=== PATIENT | male | born 1940 | race Caucasian/White ===

== ENCOUNTER 2019-12-09 14:23 | Inpatient (IN) | payer MEDICARE ==
[~2019-12-09] VITALS: Ht 172.7 cm; Wt 68.0 kg
--- NOTE | 2019-12-09 14:23 | NUR ---
Patient is here in our ER for medical clearance for pysch admission to [facility] for danger to self. Dr Holm & [facility] hospitalist accepted this patient. Our ER doctor needs to medically clear this patient. [phone] psych HOLD noted since 1155am today 12/09/19.
[2019-12-09] MEDS ORDERED: ALPR1TAB7 PO (14:45)
[2019-12-09] MEDS ORDERED: ASPI-1169 PO (14:45)
[2019-12-09] MEDS ORDERED: CBD PO (14:45)
[2019-12-09] MEDS ORDERED: OLOP2.5D EACHEYE (14:45)
[2019-12-09] MEDS ORDERED: AMLO5TAB9 PO (14:45)
[2019-12-09] MEDS ORDERED: MEMA10TA PO (14:45)
[2019-12-09] MEDS ORDERED: IBUP-1955 PO (14:45)
[2019-12-09] MEDS ORDERED: PEG15DRO5 OP (14:45)
[2019-12-09] MEDS ORDERED: LOSA50TA39 PO (14:45)
[2019-12-09] MEDS ORDERED: FERR325T24 PO (14:45)
[2019-12-09] MEDS ORDERED: GINK120C PO (14:45)
[2019-12-09] MEDS ORDERED: FAMO-132 PO (14:45)
[2019-12-09] MEDS ORDERED: DEBROX (14:45)
[2019-12-09] MEDS ORDERED: HYOS-17 SL (14:45)
[2019-12-09] MEDS ORDERED: DONE10TA44 PO (14:45)
[2019-12-09 14:58] LABS: *BILIRUBIN,URIN NEGATIVE (NEGATIVE); *BLOOD, URINE NEGATIVE (NEGATIVE); *CLARITY,URINE CLEAR (CLEAR); *KETONES,URINE NEGATIVE (NEGATIVE); *UROBILINOGEN,URINE 0.2 E.U./dl (NORMAL); LEUKOCYTE ESTERASE ,URINE NEGATIVE (NEGATIVE); NITRITE, URINE NEGATIVE (NEGATIVE); UGLUCOSE NEGATIVE (NEGATIVE)
[2019-12-09 14:58] LABS: BASOPHILS % (AUTO) 0.3 % (0.0-2.0); EOSINOPHILS # (AUTO) 0.1 K/uL (0.0-0.7); HEMATOCRIT 48.3 % (36.7-47.1); HEMOGLOBIN 16.2 g/dL (12.5-16.3); LYMPHOCYTES # (AUTO) 2.4 K/uL (20.0-40.0); LYMPHOCYTES % (AUTO) 30.2 % (20.5-51.5); MEAN CORPUSCULAR HEMOGLOBIN 32.9 uug (23.8-33.4); MEAN CORPUSCULAR HGB CONC 33 g/dL (32.5-36.3); MEAN CORPUSCULAR VOLUME 98.5 fL (73.0-96.2); MONOCYTES # (AUTO) 0.7 K/uL (2.0-10.0); MONOCYTES % (AUTO) 8.5 % (0.0-11.0); NEUTROPHILS # (AUTO) 4.8 K/uL (1.8-8.9); PLATELET COUNT (AUTO) 190 K/uL (152-348); RED BLOOD CELL COUNT(AUTO) 4.91 MIL/uL (4.06-5.63)
[2019-12-09 15:03] LABS: CARBON DIOXIDE 30 mmol/L (21-32); CHLORIDE 98 mmol/L (98-107); CREATININE 1.1 mg/dL (0.6-1.3); GLUCOSE 95 mg/dL (74-106); POTASSIUM 3.5 mmol/L (3.5-5.1); UREA NITROGEN, BLOOD 12 mg/dL (7-18)
[2019-12-09 15:07] LABS: *COLOR,URINE LIGHT YELLOW (YELLOW)
--- NOTE | 2019-12-09 15:10 | NUR ---
Dr Aviles is at bedside, MSE in progress
[2019-12-09 15:18] LABS: ETHANOL < 3 MG/DL (0-0)
[2019-12-09 15:20] LABS: ALANINE AMINOTRANSFERASE 26 U/L (16-63); ALKALINE PHOSPHATASE 63 U/L (50-136); ASPARTATE AMINOTRANSFERASE 16 U/L (15-37); BILIRUBIN,DIRECT 0.1 mg/dL (0.0-0.2); BILIRUBIN,TOTAL 0.5 mg/dL (0.2-1.0); TOTAL PROTEIN, SERUM 7.7 g/dL (6.4-8.2)
[2019-12-09 15:21] LABS: ACETAMINOPHEN < 2.0 ug/mL (10-30)
[2019-12-09 15:30] VITALS: BP 158/89
[2019-12-09 15:33] LABS: THYROID STIMULATING HORMONE 0.724 mIU/mL (0.358-3.740)
[2019-12-09 15:38] LABS: *AMPHETAMINE, URINE NEGATIVE (NEGATIVE); *BARBITURATE, URINE NEGATIVE (NEGATIVE)
[2019-12-09 15:39] LABS: *CANNABINOID, URINE NEGATIVE (NEGATIVE); *COCCAINE, URINE NEGATIVE (NEGATIVE); *OPIATE, URINE NEGATIVE (NEGATIVE); *PHENCYCLIDINE SCREEN,URINE NEGATIVE (NEGATIVE)
[2019-12-09] MEDS: LOPERAMIDE HCL 2 MG CAPSULE PO ONE ×2 (15:45→16:03)
[2019-12-09] MEDS ORDERED: LOPERAMIDE HCL 2 MG CAPSULE ONE (15:47)
--- NOTE | 2019-12-09 16:01 | NUR ---
Erwin wants his eyedrops, is aware.
--- NOTE | 2019-12-09 16:03 | NUR ---
Patient refused the Imodium capsule, is aware.
--- NOTE | 2019-12-09 16:36 | NUR ---
Patient is medically cleared by Dr Aviles for MHU admission.
--- NOTE | 2019-12-09 16:44 | NUR ---
3rd page of the medication list (3 of 3) pending from patient's detention home. Patient is resting comfortably on gurney, no acute change in condition seen.
--- NOTE | 2019-12-09 16:51 | NUR ---
Room 145A is not ready per MHU nurse Lawanda. EVS paged accordingly.
--- NOTE | 2019-12-09 17:01 | NUR ---
Patient refused dinner tray@this time.
[2019-12-09] MEDS ORDERED: MAG HYDROX/AL HYDROX/SIMETH 30 ML LIQUID UDC PO PRN (17:45)
[2019-12-09] MEDS ORDERED: MAGNESIUM HYDROXIDE 30 ML LIQUID UDC PO PRN (17:45)
[2019-12-09] MEDS ORDERED: TEMAZEPAM 7.5 MG CAPSULE PO PRN (17:45)
[2019-12-09] MEDS ORDERED: ACETAMINOPHEN 325 MG TABLET PO PRN (17:45)
[2019-12-09] MEDS ORDERED: BLOOD SUGAR DIAGNOSTIC 1 EACH STRIP VI ONE (17:45)
[2019-12-09] MEDS ORDERED: CHOL200078 PO (18:08)
[2019-12-09] MEDS ORDERED: ACET325T53 PO (18:08)
[2019-12-09] MEDS ORDERED: VENL75CA62 PO (18:08)
[2019-12-09] MEDS ORDERED: OXYB15TA19 PO (18:08)
[2019-12-09] MEDS ORDERED: PILO5TAB PO (18:08)
[2019-12-09] MEDS ORDERED: NETA2.5D3 EACHEYE (18:08)
[2019-12-09] MEDS ORDERED: ACET-73 PO (18:08)
[2019-12-09] MEDS ORDERED: BRIN8DRO EACHEYE (18:08)
[2019-12-09] MEDS ORDERED: OMEP40CA13 PO (18:08)
[2019-12-09] MEDS ORDERED: ACET500C4 PO (18:08)
[2019-12-09] MEDS ORDERED: MULT1TAB82 PO (18:08)
--- NOTE | 2019-12-09 18:45 | NUR ---
Patient admitted to [facility] on a 5150 hold for DTS from the ER. Patient transported on a gurney accompanied by ER staff. patient oriented to unit rules and policies, oriented to his assigned room, and given an admission packet. Patient's belongings and valuables inventoried with patient and placed in contraband and safe. Patient is cooperative on admission. Upon face to face admission, patient is minimizing reason for admission, is anxious, becoming agitated, but is cooperative and redirectable. Patient stated that he was at home and "looked on the internet for painless ways to . I wanted to use a razor blade but I just needed to know if I should use cold water or hot water." Patient stated "If I wanted to I would have just jumped off my balcony. I'm on the 4th floor." Patient stated he has had 1 suicide attempt in the past, he overdosed on hydrocodone and sleeping pills but was found by his neighbor. Patient state his stressor is that he is homosexual and his partner of 35 years . Patient reports no social support. Patient denies history of substance abuse. Patient denies AH/VH, denies HI. States that he takes Effexor XR for depression since 1989 but is denying mental illness.
[2019-12-09 21:06] VITALS: BP 143/75
[2019-12-09] MEDS ORDERED: IBUPROFEN 600 MG TABLET PO PRN (21:30)
[2019-12-10 07:30] VITALS: BP 141/85
[2019-12-10] MEDS ORDERED: POLYVINYL ALCOHOL OPHT DROPS 15 ML BOTTLE EACHEYE PRN (08:00)
[2019-12-10] MEDS ORDERED: PILOCARPINE HCL 5 MG PO SCH (09:00)
[2019-12-10] MEDS ORDERED: MULTIVITS W FE OTHER MIN PO SCH (09:00)
[2019-12-10] MEDS ORDERED: Medication Not On Formulary EA (Omeprazole 40 MG) PO SCH (09:00)
[2019-12-10] MEDS ORDERED: OXYBUTYNIN CHLORIDE 15 MG PO SCH (09:00)
[2019-12-10] MEDS: CHOLECALCIFEROL 1,000 UNIT TABLET PO SCH (09:33)
[2019-12-10] MEDS: LOSARTAN POTASSIUM 50 MG TABLET PO SCH (09:34)
[2019-12-10] MEDS: DONEPEZIL 10 MG TABLET PO SCH (09:34)
[2019-12-10] MEDS: FERROUS SULFATE 325 MG TABEC PO SCH (09:34)
[2019-12-10] MEDS: AMLODIPINE 5 MG TABLET PO SCH (09:34)
[2019-12-10] MEDS: ASPIRIN 81 MG TAB.CHEW PO SCH (09:35)
[2019-12-10] MEDS: OXYBUTYNIN XL 5 MG TABSR PO SCH ×2 (09:35→16:34)
[2019-12-10] MEDS: MULTIVIT, IRON, MIN NO. 8, FA TABLET PO SCH (09:35)
[2019-12-10] MEDS: LORAZEPAM 0.5 MG TABLET PO PRN ×2 (09:43→10:36)
[2019-12-10] MEDS: VENLAFAXINE XR 75 MG TAB.ER.24H PO SCH (12:27)
[2019-12-10] MEDS: BRIMONIDINE 0.2% OPHT DROP 10 ML BOTTLE EACHEYE SCH ×2 (13:00→16:34)
[2019-12-10] MEDS: OLOPATADINE 0.1% OPHT DROP 5 ML BOTTLE EACHEYE SCH ×2 (13:00→20:32)
[2019-12-10] MEDS: DORZOLAMIDE 2% OPHT DROP 10 ML BOTTLE EACHEYE SCH ×2 (13:01→16:34)
[2019-12-10 17:37] VITALS: BP 169/92
[2019-12-10 20:27] VITALS: BP 124/87
[2019-12-10] MEDS: FAMOTIDINE 20 MG TABLET PO SCH (20:30)
[2019-12-10] MEDS: LATANOPROST OPHT DROP 2.5 ML BOTTLE EACHEYE SCH (20:31)
[2019-12-10] MEDS ORDERED: Medication Not On Formulary EA (Netarsudil Mesylat/Latanoprost (Rocklatan 0.02%-0.005% E OP SCH (21:00)
--- NOTE | 2019-12-11 01:32 | NUR ---
RECEIVED PATIENT IN BED AND HE APPEARED DEPRESSED AND WITHDRAWN.HE HOWEVER SAYS HE'S NOT GOING TO HARM HIMSELF AND DENIES SI/HI.HE IS VERY PARTICULAR ABOUT HIS MEDICATIONS AND GAVE A WHOLE LOT OF REASONS WHY HE ONLY NEEDS ONE EYE DROP. AFTER SOME EXPLANATIONS HE TOOK THEM ALL. FREQUENT VISUAL CHECKS MADE ON HIM. WILL CONTINUE TO MONITOR.
[2019-12-11] MEDS: PANTOPRAZOLE SODIUM 40 MG TABLET.DR PO SCH (06:28)
--- NOTE | 2019-12-11 06:43 | NUR ---
HE SLEPT FAIRLY WELL AFTER A WHILE.APPROX 07;30HRS.BED BATH GIVEN. Addendum: 12/11/19 at 0645 by ESPERANZA GUADARRAMA RN WRONG DOCUMENTATION
--- NOTE | 2019-12-11 06:45 | NUR ---
SLEPT FAIRLY WELL FOR APPROX.07;30HRS.REFUSED OFFERED SHOWER. SAID HIS NEXT SHOWER SHOULD BE TAKEN AT HOME.
[2019-12-11 07:30] VITALS: BP 140/86
[2019-12-11] MEDS: DORZOLAMIDE 2% OPHT DROP 10 ML BOTTLE EACHEYE SCH ×3 (09:00→17:00)
[2019-12-11] MEDS: DONEPEZIL 10 MG TABLET PO SCH (09:05)
[2019-12-11] MEDS: ASPIRIN 81 MG TAB.CHEW PO SCH (09:05)
[2019-12-11] MEDS: MULTIVIT, IRON, MIN NO. 8, FA TABLET PO SCH (09:05)
[2019-12-11] MEDS: FERROUS SULFATE 325 MG TABEC PO SCH (09:06)
[2019-12-11] MEDS: VENLAFAXINE XR 75 MG TAB.ER.24H PO SCH (09:06)
[2019-12-11] MEDS: LOSARTAN POTASSIUM 50 MG TABLET PO SCH (09:06)
[2019-12-11] MEDS: OXYBUTYNIN XL 5 MG TABSR PO SCH ×2 (09:06→17:00)
[2019-12-11] MEDS: CHOLECALCIFEROL 1,000 UNIT TABLET PO SCH (09:06)
[2019-12-11] MEDS: AMLODIPINE 5 MG TABLET PO SCH (09:07)
[2019-12-11] MEDS: BRIMONIDINE 0.2% OPHT DROP 10 ML BOTTLE EACHEYE SCH ×3 (09:07→17:00)
[2019-12-11] MEDS: OLOPATADINE 0.1% OPHT DROP 5 ML BOTTLE EACHEYE SCH ×2 (09:08→20:38)
[2019-12-11] MEDS ORDERED: LOPERAMIDE HCL 2 MG CAPSULE PO PRN (13:30)
--- NOTE | 2019-12-11 14:30 | NUR ---
PT STATED THAT HE CANNOT FIND HIS RIGHT HEARING AID. A SEARCH WILL BE PERFORMED BY STAFF FOR MISSING ITEM. STATED THE LAST TIME HE SAW HEARING AID WAS "THIS MORNING."
[2019-12-11 16:00] VITALS: BP 118/84
[2019-12-11 20:37] VITALS: BP 117/73
[2019-12-11] MEDS: LATANOPROST OPHT DROP 2.5 ML BOTTLE EACHEYE SCH (20:37)
[2019-12-11] MEDS: FAMOTIDINE 20 MG TABLET PO SCH (20:37)
--- NOTE | 2019-12-12 00:11 | NUR ---
RECEIVED PATIENT IN BED AND HE APPEARED WITHDRAWN AND DEPRESSED.HE HOWEVER SAYS HE'S NOT GOING TO HARM HIMSELF AND DENIES SI/HI. HE IS SELECTIVE WITH SOME OF HIS EYE DROPS. FREQUENT VISUAL CHECKS MADE ON HIM. WILL CONTINUE TO MONITOR.
[2019-12-12] MEDS: PANTOPRAZOLE SODIUM 40 MG TABLET.DR PO SCH (06:23)
--- NOTE | 2019-12-12 06:35 | NUR ---
SLEPT FOR APPROX 07;00. TOOK ALL MEDS.WILL CONTINUE TO MONITOR.
[2019-12-12] MEDS: MULTIVIT, IRON, MIN NO. 8, FA TABLET PO SCH (08:22)
[2019-12-12] MEDS: VENLAFAXINE XR 75 MG TAB.ER.24H PO SCH (08:22)
[2019-12-12] MEDS: ASPIRIN 81 MG TAB.CHEW PO SCH (08:23)
[2019-12-12] MEDS: CHOLECALCIFEROL 1,000 UNIT TABLET PO SCH (08:23)
[2019-12-12] MEDS: FERROUS SULFATE 325 MG TABEC PO SCH (08:23)
[2019-12-12] MEDS: LOSARTAN POTASSIUM 50 MG TABLET PO SCH (08:23)
[2019-12-12] MEDS: DONEPEZIL 10 MG TABLET PO SCH (08:23)
[2019-12-12] MEDS: AMLODIPINE 5 MG TABLET PO SCH (08:24)
[2019-12-12] MEDS: OLOPATADINE 0.1% OPHT DROP 5 ML BOTTLE EACHEYE SCH ×2 (08:32→20:19)
[2019-12-12] MEDS: OXYBUTYNIN XL 5 MG TABSR PO SCH ×2 (08:32→17:10)
[2019-12-12] MEDS: BRIMONIDINE 0.2% OPHT DROP 10 ML BOTTLE EACHEYE SCH ×3 (08:32→17:00)
[2019-12-12] MEDS: DORZOLAMIDE 2% OPHT DROP 10 ML BOTTLE EACHEYE SCH ×3 (08:32→17:10)
[2019-12-12 10:22] VITALS: BP 137/69
--- NOTE | 2019-12-12 12:05 | NUR ---
Social Work Note/Initial Discharge Plan: Patient currently resides at [facility] a fci at [address] [place] [address]; ([phone]). Patient would like to go back to his fci. SW will contact the fci to see if patient is welcomed back. case worker will work with the patient and the MD regarding appropriate discharge planning. case worker will form a safe and proper discharge.
--- NOTE | 2019-12-12 12:10 | NUR ---
Social Work Note/Coordination of Care: utility worker film processing contacted [facility] ([phone]) and left a voicemail to admin coordinator. This bid writer is waiting for admin coordinator to contact back to discuss patients discharge plan.
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
[2019-12-12 15:44] VITALS: BP 132/77
[2019-12-12] MEDS: LATANOPROST OPHT DROP 2.5 ML BOTTLE EACHEYE SCH (20:18)
[2019-12-12] MEDS: FAMOTIDINE 20 MG TABLET PO SCH (20:18)
[2019-12-12 20:35] VITALS: BP 125/71
[2019-12-13] MEDS: PANTOPRAZOLE SODIUM 40 MG TABLET.DR PO SCH (06:11)
[2019-12-13 07:49] VITALS: BP 112/82
[2019-12-13] MEDS: MULTIVIT, IRON, MIN NO. 8, FA TABLET PO SCH (08:19)
[2019-12-13] MEDS: OXYBUTYNIN XL 5 MG TABSR PO SCH ×2 (08:19→16:49)
[2019-12-13] MEDS: DONEPEZIL 10 MG TABLET PO SCH (08:19)
[2019-12-13] MEDS: FERROUS SULFATE 325 MG TABEC PO SCH (08:19)
[2019-12-13] MEDS: LORAZEPAM 0.5 MG TABLET PO PRN (08:19)
[2019-12-13] MEDS: CHOLECALCIFEROL 1,000 UNIT TABLET PO SCH (08:19)
[2019-12-13] MEDS: ASPIRIN 81 MG TAB.CHEW PO SCH (08:19)
[2019-12-13] MEDS: VENLAFAXINE XR 75 MG TAB.ER.24H PO SCH (08:19)
[2019-12-13] MEDS: DORZOLAMIDE 2% OPHT DROP 10 ML BOTTLE EACHEYE SCH ×3 (08:20→16:49)
[2019-12-13] MEDS: LOSARTAN POTASSIUM 50 MG TABLET PO SCH (08:20)
[2019-12-13] MEDS: AMLODIPINE 5 MG TABLET PO SCH (08:20)
[2019-12-13] MEDS: BRIMONIDINE 0.2% OPHT DROP 10 ML BOTTLE EACHEYE SCH ×3 (08:20→16:49)
[2019-12-13] MEDS: OLOPATADINE 0.1% OPHT DROP 5 ML BOTTLE EACHEYE SCH ×2 (08:21→21:00)
--- NOTE | 2019-12-13 11:49 | NUR ---
Social Work Note/Individual Therapy: box worker met with patient for brief counseling. box worker assessed for SI, but none were reported. Pt denies SI. box worker provided emotional support and actively listened. Patient is concerned with the lost of his hearing aids.
[2019-12-13] MEDS: CLIDINIUM BR/CHLORDIAZEPOXIDE CAPSULE PO SCH ×2 (15:57→21:35)
[2019-12-13 16:00] VITALS: BP 134/74
[2019-12-13 20:20] VITALS: BP 118/67
[2019-12-13] MEDS: FAMOTIDINE 20 MG TABLET PO SCH (21:31)
[2019-12-13] MEDS: LATANOPROST OPHT DROP 2.5 ML BOTTLE EACHEYE SCH (21:32)
[2019-12-14] MEDS: PANTOPRAZOLE SODIUM 40 MG TABLET.DR PO SCH (06:42)
[2019-12-14] MEDS: CLIDINIUM BR/CHLORDIAZEPOXIDE CAPSULE PO SCH ×3 (06:44→22:18)
[2019-12-14 07:30] VITALS: BP 128/67
--- NOTE | 2019-12-14 08:19 | NUR ---
Social Work Note/Coordination of Care: farmworker pullet farm faxed Jalil admin coordinator from [facility] ([phone]) (F:[phone]) [facility] and progress notes.
[2019-12-14] MEDS: MULTIVIT, IRON, MIN NO. 8, FA TABLET PO SCH (08:23)
[2019-12-14] MEDS: CHOLECALCIFEROL 1,000 UNIT TABLET PO SCH (08:23)
[2019-12-14] MEDS: AMLODIPINE 5 MG TABLET PO SCH (08:23)
[2019-12-14] MEDS: DONEPEZIL 10 MG TABLET PO SCH (08:24)
[2019-12-14] MEDS: FERROUS SULFATE 325 MG TABEC PO SCH (08:24)
[2019-12-14] MEDS: ASPIRIN 81 MG TAB.CHEW PO SCH (08:24)
[2019-12-14] MEDS: LOSARTAN POTASSIUM 50 MG TABLET PO SCH (08:24)
[2019-12-14] MEDS: OXYBUTYNIN XL 5 MG TABSR PO SCH ×2 (08:27→17:39)
[2019-12-14] MEDS: OLOPATADINE 0.1% OPHT DROP 5 ML BOTTLE EACHEYE SCH ×2 (08:28→20:18)
[2019-12-14] MEDS: DORZOLAMIDE 2% OPHT DROP 10 ML BOTTLE EACHEYE SCH ×3 (08:28→17:40)
[2019-12-14] MEDS: BRIMONIDINE 0.2% OPHT DROP 10 ML BOTTLE EACHEYE SCH ×3 (08:28→17:39)
[2019-12-14] MEDS: VENLAFAXINE XR 150 MG CAP.SR.24H PO SCH (08:55)
[2019-12-14 16:00] VITALS: BP 117/69
[2019-12-14] MEDS: LATANOPROST OPHT DROP 2.5 ML BOTTLE EACHEYE SCH (20:18)
[2019-12-14] MEDS: FAMOTIDINE 20 MG TABLET PO SCH (20:18)
[2019-12-14 21:30] VITALS: BP 122/63
[2019-12-15] MEDS: PANTOPRAZOLE SODIUM 40 MG TABLET.DR PO SCH (06:36)
[2019-12-15] MEDS: CLIDINIUM BR/CHLORDIAZEPOXIDE CAPSULE PO SCH ×2 (06:36→14:00)
[2019-12-15 07:30] VITALS: BP 137/91
[2019-12-15] MEDS: OXYBUTYNIN XL 5 MG TABSR PO SCH (09:00)
[2019-12-15] MEDS: DORZOLAMIDE 2% OPHT DROP 10 ML BOTTLE EACHEYE SCH ×2 (09:40→12:18)
[2019-12-15] MEDS: AMLODIPINE 5 MG TABLET PO SCH (09:41)
[2019-12-15 09:42] VITALS: BP 137/91
[2019-12-15] MEDS: MULTIVIT, IRON, MIN NO. 8, FA TABLET PO SCH (09:42)
[2019-12-15] MEDS: LOSARTAN POTASSIUM 50 MG TABLET PO SCH (09:42)
[2019-12-15] MEDS: FERROUS SULFATE 325 MG TABEC PO SCH (09:42)
[2019-12-15] MEDS: DONEPEZIL 10 MG TABLET PO SCH (09:43)
[2019-12-15] MEDS: ASPIRIN 81 MG TAB.CHEW PO SCH (09:43)
[2019-12-15] MEDS: CHOLECALCIFEROL 1,000 UNIT TABLET PO SCH (09:44)
[2019-12-15] MEDS: OLOPATADINE 0.1% OPHT DROP 5 ML BOTTLE EACHEYE SCH (09:44)
[2019-12-15] MEDS: VENLAFAXINE XR 150 MG CAP.SR.24H PO SCH (09:45)
[2019-12-15] MEDS: BRIMONIDINE 0.2% OPHT DROP 10 ML BOTTLE EACHEYE SCH ×2 (09:46→12:16)
--- NOTE | 2019-12-15 11:01 | NUR ---
Social Work Note/Coordination of Care: reclamation worker contacted and spoke to Kassidy from [address] [address]; ([phone]) and scheduled appointment for for December 20 at 11:30AM.
--- NOTE | 2019-12-15 11:03 | NUR ---
Social Work Note/Coordination of Care: direct care worker contacted Randi from Dr. Chante Jamison office to schedule an appointment for patient for December 29 at 2PM. This senior underwriter faxed patients [facility] notes and progress notes.
[2019-12-15] MEDS ORDERED: BENZOCAINE/MENTH/CETYLPYRD LOZENGE MM PRN (12:30)
[2019-12-15] MEDS ORDERED: GUAIFENESIN/CODEINE 5 ML LIQUID UDC PO PRN (12:30)
--- NOTE | 2019-12-15 12:56 | NUR ---
Gps/Precipitator- Had been complaining of sore throat, no coughing noted, Amanda PLASTIC BOAT BUFFER in to see patient was informed, orders received. Patient had been very particular about his eye gtts, reviewed with patient.
--- NOTE | 2019-12-15 13:55 | NUR ---
Social Work Note/Discharge: Patient will be discharged back to [facility] [address] [place] [address]; ([phone]) via taxi at 3:30PM. SW spoke to Jalil admin coordinator ([phone]) at the facility who states they are ready to accept patient back today. Patient is aware and agreeable with discharge plans. Patient has no family contact at this time. Patient is alert and oriented x3, is able to plan for care. Patient denies any suicidal or homicidal ideations. Patient will follow-up at the facility with Dr. Chante Jamison ([employer]) at [address] [facility] [address]; ([phone]) at December 29 at 2PM and will be assigned a psychiatrist upon evaluation at [address] [address]; ([phone]) on December 29 at 2PM and [facility] [place] [address]; ([phone]) for December 20 at 11:30AM. Patient was provided with outpatient mental health resources to [facility] Crisis Line , and the National Suicide Prevention Lifeline . Patient presents with euthymic and congruent mood.
--- NOTE | 2019-12-15 13:56 | NUR ---
Social Work Note/Individual Therapy: grounds worker met with patient for brief therapy. Patient denies SI. grounds worker provided resources.
--- NOTE | 2019-12-15 15:00 | NUR ---
Gps/Paper Core Machine Operator- Discharge planning in progress. Reviewed medications/prescriptions with patient vebrlaized understanding. Called Assisted living , [facility], spoked to Jalil, reviewed medications/prescription, claimed patient has all medications at the facility. Reviewed diet safety emphasized verbalized understanding. All belongings was given back to patient. Discharged instructions again reviewed with patient, verbalized understanding. Claimed will follow up with his medical Doctor Dr Chante Jamison and Psychiatrist Dr Holm. Patient verbalized happy to go back to his assisted living., able to contract for safety .
--- NOTE | 2019-12-15 15:12 | NUR ---
Social Work Note/Taxi: bog worker contacted taxi and request for 3:30PM for $40 dollars. Spoke to 97 custom feed corn operator.
--- NOTE | 2019-12-15 15:31 | NUR ---
Gps/Separations Scientist- Discharged via taxi in good spirit with no complaints noted. All belongings given back to patient, no complaints noted.
== END 2019-12-15 15:45 | DRG 885 ==
LOC: ER 14:23 → GPS 17:18
PROVIDERS: ADMIT Psychiatry & Neurology Psychiatry; ATTEND Hospitalist
DX: F33.2 Major depressive disorder, recurrent severe without psychotic features (principal); K21.9 Gastro-esophageal reflux disease without esophagitis; Z91.5 Personal history of self-harm; G30.9 Alzheimer's disease, unspecified; F02.80 Dementia in other diseases classified elsewhere, unspecified severity, without behavioral disturbance, psychotic disturbance, mood disturbance, and anxiety; K58.9 Irritable bowel syndrome, unspecified; G25.0 Essential tremor; Z90.79 Acquired absence of other genital organ(s); Z90.49 Acquired absence of other specified parts of digestive tract; K57.90 Diverticulosis of intestine, part unspecified, without perforation or abscess without bleeding; I10 Essential (primary) hypertension; H91.90 Unspecified hearing loss, unspecified ear; K64.9 Unspecified hemorrhoids; I25.10 Atherosclerotic heart disease of native coronary artery without angina pectoris; Z79.899 Other long term (current) drug therapy; R91.8 Other nonspecific abnormal finding of lung field
CPT/HCPCS: 36415; 70030-TC; 71045; 71250; 80307; 84443; 85025; 85730; 87086; 87806; 93005; A4663; G0480; G0480-TC